=== PATIENT | female | born 1970 | race Caucasian/White ===

== ENCOUNTER 2018-08-10 21:16 | Emergency (ER) | payer SELFPAY ==
[2018-08-10 21:23] VITALS: BP 124/98; TEMP 98.7; BMI 30.9
--- NOTE | 2018-08-10 22:06 | PDOC ---
History of Present Illness - General Chief Complaint: Vaginal Bleeding Stated Complaint: VAGINAL BLEEDING Time Seen by Provider: 08/10/18 22:05 History Source: Patient - History of Present Illness Initial Comments: 08/10/18 22:14 The patient is a 48 year old female with no reported PMH who presents with vaginal bleeding. Patient states her last menstrual period started on July 20 and she has been bleeding since that time, approximately 9 pads daily. Endorses some associated fatigue and abdominal cramping. Denies shortness of breath, lightheadedness, palpitations. Her previous menstrual cycle was in late May and lasted 10 days. Her April menstrual cycle was 3 days which was normal for her until recently. Patient is with her last 3 years previous. Has limited primary and gynecologic care. NKDA Surgical: denies Social: denies toxic habits PMD: None - will refer to IM resident clinic Past History - Past Medical History Allergies/Adverse Reactions: Allergies Allergy/AdvReac Type Severity Reaction Status Date / Time amoxicillin Allergy Intermediate Verified 08/10/18 21:23 Home Medications: Ambulatory Orders Multivitamin [Multiple Vitamins] 1 each PO DAILY 08/10/18 COPD: No - Immunization History Immunization Up to Date: Yes - Suicide/Smoking/Psychosocial Hx Smoking History: Never smoked Hx Alcohol Use: No Substance Use Type: None Review of Systems - Review of Systems Constitutional: No: Chills, Fever HEENTM: No: Blurred Vision, Double Vision Respiratory: No: Cough, Shortness of Breath Cardiac (ROS): No: Chest Pain, Lightheadedness, Palpitations ABD/GI: No: Constipated, Diarrhea, Nausea, Vomiting : No: Burning, Dysuria *Physical Exam - Vital Signs Last Vital Signs Temp Pulse Resp BP Pulse Ox 98.7 F 100 H 18 124/98 98 08/10/18 21:19 08/10/18 21:19 08/10/18 21:19 08/10/18 21:19 08/10/18 21:19 - Physical Exam General Appearance: Yes: Nourished, Appropriately Dressed HEENT: positive: Normal Voice, Rhinorrhea Neck: positive: Trachea midline, Supple Female Pelvic Exam: positive: normal external exam, cervical os closed, vaginal bleeding. negative: adnexal tenderness Gastrointestinal/Abdominal: positive: Normal Bowel Sounds. negative: Rebound, Tenderness, Hernia, Mass Musculoskeletal: negative: CVA Tenderness (R), CVA Tenderness (L) Extremity: positive: Normal Capillary Refill, Normal Inspection Integumentary: positive: Normal Color, Dry, Warm Neurologic: positive: Fully Oriented, Alert ED Treatment Course - LABORATORY CBC & Chemistry Diagram: 08/10/18 23:19 Medical Decision Making - Medical Decision Making 08/10/18 22:24 48 year old female presents with vaginal bleeding. VS unremarkable. Frontal diagnosis: DUB 2/2 to fibroids vs. polyps vs. pre-menopausal hormonal changes, less likely coagulation disorder (acute onset, 2 lifetime episodes) or endocrine disorders. Will obtain CBC, pelvic exam + IV normal saline. Reassess. 08/10/18 23:40 Pelvic exam shows closed dark red blood in vaginal vault, no CMT, non-palpable adnexa. Hb stable 11.3 Patient symptomatically improved, ambulatory, tolerating PO intake. 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 *DC/Admit/Observation/Transfer Diagnosis at time of Disposition: Vaginal bleeding - Discharge Dispostion Disposition: HOME Condition at time of disposition: Fair Decision to Admit order: No - Referrals Referrals: Jose Hazel MD [Staff Physician] - Chris Linn MD [Staff Physician] - - Patient Instructions Additional Instructions: You were evaluated today for vaginal bleeding. Your labs showed no concerning findings. At this time your are stable for discharge. Please make an appointment for evaluation with an OB-Water Commissioner. Please also make an appointment to establish primary care. Referrals are provided for you or you can call your insurance company for referrals. Return to the Emergency Department for any new/worsening/concerning symptoms. Hoy te evaluaron por sangrado vaginal. Margaret laboratorios no mostraron hallazgos preocupantes. En julia momento ests estable para la descarga. Por favor ana vimal brooks para vimal evaluacin con un obstetra / gineclogo. Por favor tambin ana vimal brooks para establecer la atencin primaria. Se le proporcionan referencias para usted o puede llamar a serrano compaa de seguros para obtener referencias. Regrese al Departamento de Emergencias para cualquier sntoma nuevo / que empeora / relacionado. - Post Discharge Activity
[2018-08-10] MEDS ORDERED: SODIUM CHLORIDE 0.9% 500 ML INFUS.BAG IV ONE (22:18)
[2018-08-10 23:25] LABS: BASO % 0.6 % (0-2.0); EOS % 1.6 % (0-4.5); HEMATOCRIT 33.4 % (32.4-45.2); HEMOGLOBIN 11.3 GM/dL (10.7-15.3); LYMPH % 30.9 % (8-40); MCH 28.1 pg (25.7-33.7); MCHC 33.7 g/dl (32.0-36.0); MEAN CELL VOLUME 83.4 fl (80-96); MONO % 6.5 % (3.8-10.2); NEUT % 60.4 % (42.8-82.8); PLATELET COUNT 328 K/MM3 (134-434); RDW 14.7 % (11.6-15.6); WHITE BLOOD COUNT 11.3 K/mm3 (4.0-10.0)
--- NOTE | 2018-08-11 00:06 | PDOC ---
Attending Attestation - Resident Resident Name: Mary Trejo - ED Attending Attestation I have performed the following: I have examined & evaluated the patient, The case was reviewed & discussed with the resident, I agree w/resident's findings & plan, Exceptions are as noted - HPI HPI: 08/11/18 00:05 48yoF w/ DUB, has had vaginal beedling x 3 weeks after expected onset of menses. UPT negative in ED. No dizziness/lightheadedness, no abd pain, no syncope. AF, vSS. NAD, well appearing abd soft NTND pelvic examination as per resident note A&O x3. 48yoF w/ DUB, likely perimenopausal. UPT negative. - check H/H for stability - f/u w/ OBGYN.
[2018-08-11 00:19] VITALS: PULSE 93
== END 2018-08-11 00:19 | disposition home or self-care (01) ==
LOC: JER 21:16
DX: N93.8 Other specified abnormal uterine and vaginal bleeding (principal)
CPT/HCPCS: 36415; 84703; 85025; 99283-25